=== PATIENT | female | born 1955 | race Two or more races ===

== ENCOUNTER 2022-02-16 10:56 | Outpatient (CLI) | payer OTHER | END 2022-02-16 10:59 | disposition home or self-care (01) | LOC: SONOGRAMA 10:56 | PROVIDERS: ATTEND Pathology Anatomic Pathology & Clinical Pathology | DX: E04.2 Nontoxic multinodular goiter (principal) ==

== ENCOUNTER 2022-05-11 10:38 | Outpatient (CLI) | payer OTHER | END 2022-05-11 10:40 | disposition home or self-care (01) | LOC: SONOGRAMA 10:38 | PROVIDERS: ATTEND Pathology Anatomic Pathology & Clinical Pathology | DX: E04.1 Nontoxic single thyroid nodule (principal) ==

== ENCOUNTER 2022-12-21 12:06 | Outpatient (CLI) | payer OTHER | END 2022-12-21 12:28 | disposition home or self-care (01) | LOC: RAD 12:06 | DX: M25.512 Pain in left shoulder (principal); M25.511 Pain in right shoulder; G44.021 Chronic cluster headache, intractable ==